=== PATIENT | male | born 1955 ===

== ENCOUNTER 2016-10-23 09:42 | Day surgery (SDC) | payer OTHER ==
[2016-10-15 11:09] VITALS: BMI 25.3
[2016-10-23] MEDS ORDERED: ceFAZolin IV 2 gm in Dextrose 50 ML IVPB ONE (11:58)
[2016-10-23] MEDS ORDERED: EPINEPHrine 1:1000 Nasal Sol(30mL) ONE (11:59)
[2016-10-23] MEDS ORDERED: Propofol 10 mg/ml Inj (20 ML) ONE (12:38)
[2016-10-23] MEDS ORDERED: Midazolam 2 MG/2 ML VIAL ONE ×2 (12:38→16:03)
[2016-10-23] MEDS ORDERED: Rocuronium 10 mg/ml (5 ml) ONE (12:38)
[2016-10-23] MEDS ORDERED: Etomidate 20 mg/10ml Inj IV ONE (13:43)
[2016-10-23] MEDS ORDERED: Lactated Ringer's 1,000 ML IV ONE ×2 (13:50→16:30)
[2016-10-23] MEDS ORDERED: ceFAZolin 1 gm FROZEN Premix 50 ML IVPB ONE (14:00)
--- NOTE | 2016-10-23 15:46 | PCM.SURG1 ---
Surgeon's Initial Post Op Note - Surgeon's Notes Surgeon: Crystal Montilla MD Spool Hauler: Silviano Espana PA-c Type of Anesthesia: General Endo Anesthesia Administered By: Dr. Cheng/Mana NARAYAN Pre-Operative Diagnosis: Left knee medial meniscal tear, chrondromalacia medial compartment Operative Findings: tourniquet not used Post-Operative Diagnosis: Left knee medial meniscal tear, chondromalcia medial compartment and PF compartment Operation Performed: 1. Left arthroscopic knee partial medial meniscectomy. 2. Chondroplasty medial compartment and patella. 3. excision of plica Specimen/Specimens Removed: none Estimated Blood Loss: EBL {In ML}: 3 Blood Products Given: N/A Drains Used: No Drains Post-Op Condition: Fair Date of Surgery/Procedure: 10/23/16 Time of Surgery/Procedure: 15:47
[2016-10-23] MEDS ORDERED: Oxycodone/Acetaminophen 5/325 mg Tab PO PRN (15:47)
[2016-10-23] MEDS ORDERED: Bupivacaine 0.5% Inj(30mL) ONE (15:50)
[2016-10-23] MEDS: HYDROmorphone 0.5 mg/0.5 ml ISec IVP PRN ×5 (15:56→16:26)
--- NOTE | 2016-10-23 16:12 | PCM.ANESB3 ---
Femoral Nerve Block - Femoral Nerve Block Date of Procedure: 10/23/16 Anesthesiologist: Ion Pre-Procedure Diagnosis: L knee osteoarthritis Post-Procedure Diagnosis: L knee arthroscope and meniscectomy Procedure Performed: Femoral Nerve Block Left - Procedure Femoral Nerve Block: The procedure was explained to the patient that it is for the post-operative pain management. Consent was obtained after a thorough discussion with the patient regarding the benefits and possible complications of local anesthetic block of the femoral nerve at the inguinal crease area. The patient was brought to the recovery room and standard monitors were applied. After applying oxygen by nasal cannula and administering IV Sedation, patient was placed in supine position with fully extended lower extremities and the ____left____ groin exposed. The femoral artery was then carefully palpated. The ultrasound transducer was then applied to this area in the transverse plane and the femoral nerve was visualized lateral to the femoral artery and underneath the fascia iliaca. After thorough identification, the inguinal crease area was prepped with Betadine solution three times and 1 % Lidocaine was injected subcutaneously for topical anesthesia. At this point, a #22 gauge Stimuplex 4-inch needle was inserted immediately lateral to the femoral artery pulse at the inguinal crease and advanced perpendicularly. The needle was inserted to the ultrasound transducer in-plane towards the femoral nerve in a [id number] direction. Needle advancement was performed carefully under direct ultrasound. After negative aspiration, ___ 30__cc of _0.5____% __Bupivacaine__was injected_. Under ultrasound guidance the local anesthetics were observed spreading below fascia iliaca and around the femoral nerve. The needle was removed intact and sterile dressing was applied. The patient had stable vital signs, was conscious and in no apparent distress. The patient tolerated the femoral nerve block well with stable vital signs.
[2016-10-23] MEDS ORDERED: Midazolam 2 MG/2 ML VIAL IVP ONE (16:14)
[2016-10-23 17:53] VITALS: BP 147/86; PULSE 88; RESP 20; TEMP 96.8; O2SAT 100
--- NOTE | 2016-11-11 10:02 | OP ---
PROCEDURE DATE: 10/23/2016 PREOPERATIVE DIAGNOSES: Left knee: 1. Complex medial meniscal tear. 2. Medial compartment chondromalacia and early degenerative joint disease. 3. Patellar chondromalacia and early degenerative changes. POSTOPERATIVE DIAGNOSES: Left knee: 1. Complex medial meniscal tear not amenable to meniscal repair. 2. Medial compartment chondromalacia and early degenerative changes. 3. Patellar chondromalacia. 4. Lateral tibial plateau chondromalacia. 5. Synovitis and symptomatic plica band medially. PROCEDURES: Left knee arthroscopic: 1. Partial medial meniscectomy. 2. Chondroplasty of medial compartment, patella, lateral tibial plateau. 3. Extensive synovectomy and resection of symptomatic plica band. SURGEON: Karey Montilla MD BUTCHER SCULLION: Ede Espana PA-C JUSTIFICATION FOR BUTCHER SCULLION: Ede Espana is a certified physician special ed assistant and her skilled surgical services as a skilled surgical aide were very valuable during this procedure as she provided skilled surgical assistance with positioning of patient, positioning of extremity, management of surgical field and arthroscopic equipment, handling of arthroscopic equipment, wound closure. Ede Espana was present for the entire case. ESTIMATED BLOOD LOSS: 3 mL. ANESTHESIA: General endotracheal anesthesia with a postoperative regional nerve block placed by anesthesia staff in PACU. DRAINS: None. IMPLANTS: None. COMPLICATIONS: None. DISPOSITION: The patient was extubated and transferred to PACU in stable condition and tolerated the procedure well. INDICATIONS FOR SURGERY: The patient is a 61-year-old male with a past medical history significant for uncontrolled diabetes, obesity, hypertension, hypercholesterolemia who presented to the office under my care for the first time on 08/01/2016 with left knee pain since injury at work on 07/08/2016. The patient was referred by the [facility] office as a workman's compensation case. 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 He states on 07/08/2016, while he was at work, he was climbing into his truck and he slipped off the back of the truck, landing on his left knee and twisting his left knee as well. He had immediate 10/10 pain localized to the left knee medial aspect and difficulty with weightbearing after. He was evaluated by Dr. Cary at the [facility] office and referred for an MRI of the left knee which was done at [facility] on 07/23/2016 and read as: 1. Complex tears of the posterior horn and body of the medial meniscus/complex medial meniscal tear. 2. Degenerative changes of the medial joint and patellofemoral compartment. 3. Effusion. 4. Sprain of the ACL. X-rays taken in the office on initial presentation showed some mild loss of the medial joint space with early degenerative changes of the medial compartment and osteophyte formation with an overall varus alignment. Examination in the office consistently was positive for medial meniscus tear with positive Domo, pain with palpation at medial joint line, pain at medial joint line with flexion past 90 degrees. There was no evidence of instability. He did have significant reproducible symptomatic medial plica band and infra-patellar bogginess and synovial pain. We started with conservative treatment after reviewing the MRI with him which included placement in a neoprene hinged knee brace for stability as the patient had multiple episodes of giving out, anti-inflammatory medication, compound anti -inflammatory pain cream, physical therapy and cortisone injections. The patient had a history of left knee arthroscopic partial medial meniscectomy almost 10 years ago, also work related. After undergoing the previous left knee arthroscopic surgery 10 years ago and before this work injury, the patient denies having any left knee pain or dysfunction. He reports that he was able to perform his job without any difficulty and was able to have an active lifestyle without pain. Overall, he underwent 3 rounds of cortisone mixture injection to the left knee with each round of injections injecting both the medial and lateral compartments as the patient has a history of surgery and 1 injection alone in one setting did not provide nearly complete pain relief as 2 injections in each compartment provided. As stated before, he underwent 3 rounds of cortisone mixture injections to the left knee on 08/01/2016, 08/20/2016 and on 2013. All 3 rounds of the cortisone mixture injections provided him with near complete pain relief immediately which lasted about 1 week. The patient was compliant with physical therapy and brace use. Finally, after 2 months of conservative treatment under my care and absolutely no overall improvement in his presentation and pain level as well as inability to return to work, the patient was indicated for arthroscopic surgery of the left knee. He consistently complained of pain localized to the medial joint line as well as a global bogginess, multiple episodes of giving way and falling, multiple episodes of locking, and pain constantly with any ambulation. He was indicated for left knee arthroscopic partial medial meniscectomy versus repair, chondroplasty versus microfracture of the areas of chondromalacia, and all related indicated arthroscopic surgical procedures including synovectomy and plica band resection. The risks, benefits, and alternatives of the procedure were discussed at length with the patient with the risks including, but not limited to, infection, neurovascular damage, need for further surgery, development of blood clots including DVT and PE, development of chronic pain and disability, need for further surgery, accelerated degenerative process, chondrolysis, failure of any repair, need for a total knee arthroplasty in the future, anesthesia reactions including . After answering all of his questions, the patient stated that he understood the risks and wished to proceed with surgery. He watched surgical animation videos and diagnosis animation videos and stated that he understood the surgery as well as the multiple diagnoses. I reviewed at length with him the postoperative rehab protocol and he stated that he understood the need for compliance with the rehab protocol in order to maximize the chance of having a successful outcome after surgery. He also understood that he has underlying degenerative process starting most notably at the medial compartment with the overall varus alignment and that was something that will continue to worsen despite our best efforts during this procedure. The goal of this surgery is to treat his acute injury, which is the medial meniscal tear, as a worker's compensation acute injury as well as any cartilage injury, but the patient understands that this surgery will not treat the degenerative process that has started in his knee. He was referred to his primary care physician for medical clearance and preadmission testing. We also discussed at length the need for DVT prophylaxis in the form of Lovenox 40 mg once daily starting postoperative day #1 as the patient has significant risk factors including his uncontrolled diabetes and obesity as well as sedentary lifestyle and being a risk for postoperative DVT development or PE development. The patient agreed to DVT prophylaxis postoperatively and arrangements were made through the worker's compensation office to provide him with the medications/injections. PROCEDURE IN DETAIL: The patient was identified in the preoperative holding area and the left knee was marked for surgery. Once again, as described above, the risks, benefits, and alternatives to procedure were discussed at length with the patient and informed consent was obtained. PROCEDURE IN DETAIL: The patient was identified in the preoperative holding area and the left knee was marked for surgery. Once again, as described above, the risks, benefits, and alternatives of the procedure discussed at length with the patient and informed consent was obtained. After a brief discussion with anesthesia staff, perioperative IV antibiotics in the form of 2 g Ancef were administered and the patient was taken to the operating room and placed on a well-padded operating room table with all bony prominences and superficial neurovascular structures well padded. A final timeout was done with the surgeon , anesthesia staff, and OR staff. All were in agreement with the patient, procedure being done, and extremity being operated on. General anesthesia was administered without difficulty or complication. Examination under anesthesia was then carried out. EXAMINATION UNDER ANESTHESIA: Left knee with full range of motion compared to the contralateral knee. No warmth, no swelling, no erythema. Skin intact. No significant instability with negative anterior apprentice/lineman neutral external rotation and internal rotation, negative posterior drawer, negative Karlos, negative reverse Karlos, negative pivot shift, negative reverse pivot shift, negative posterolateral corner drawer test, negative recurvatum, negative dial test, negative opening to medial or lateral joint lines at 0 or 30 degrees varus or valgus stress, patella with normal tracking with no evidence of instability, with significant crepitance. Reproducible throughout patellar tracking and range of motion, there was a palpable click engaging between 30 and 40 degrees of flexion throughout arc of range of motion at the medial aspect of the inferior medial aspect of the patellar representing a symptomatic plica band. CONTINUATION OF PROCEDURE: A tourniquet was placed high on the left thigh, but never inflated. The left lower extremity was prepped and draped in standard sterile fashion. Next, 50 mL of normal saline were used to insufflate the knee joint. Anterolateral portal was then created with stab incision through skin down to subcutaneous tissue down to the capsule. The blunt arthroscopic trocar and cannula were inserted into the suprapatellar pouch and the arthroscopic camera was inserted. Insufflation with arthroscopic fluid was begun. With the use of spinal needle localization, optimal positioning for anterior medial portal was selected and stab incision was made through skin down to subcutaneous tissue down to the level of capsule. An accessory cannula was then inserted and the left knee joint was copiously irrigated for better visualization and removal of debris. With the use of an arthroscopic probe, a diagnostic arthroscopy was then carried out. Attention was first turned towards the suprapatellar pouch where there was no evidence of adhesions or loose bodies. Attention was then turned towards the patellofemoral joint where globally throughout the medial and lateral facets of the patella there was grade II-III chondromalacia with fibrillation and some loose cartilage fragments. At the medial facet, there was an area of grade IV chondromalacia and unstable cartilage flaps as well. Trochlea exhibited grade II-III chondromalacia with no full-thickness defects seen. Attention was then turned towards the medial gutter where immediately visualized extending from the inferior medial aspect of the patella to the medial retinaculum was a thickened hypertrophic synovial band of tissue/plica band of tissue that was symptomatic. Attention was then turned towards the medial compartment where immediately seen was a complex medial meniscal tear in 2 zones of injury. The first a complex tearing that was definitely irreparable was at the junction of the body and posterior horn as a full-thickness complex radial tear extending to the periphery that did not appear to be repairable. At the posterior horn and root junction, there was a secondary tear that was also complex in nature extending down to the root of the posterior aspect of the medial meniscus as well that did not appear amenable to repair either. The medial femoral condyle and medial tibial plateau did exhibit significant chondromalacia and early degenerative changes with areas of full-thickness cartilage loss at the medial femoral condyle throughout its weightbearing surface with interposed areas of grade II, III and IV chondromalacia throughout the entire medial femoral condyle at its weightbearing aspect as well. The medial tibial plateau exhibited grade II-III chondromalacia with fibrillation of the cartilage. Attention was then turned towards the intercondylar notch where intact ACL and PCL were seen, as well as an osteophyte extending into the intercondylar notch. Attention was then turned towards the lateral compartment where intact lateral femoral condyle cartilage was seen as well as intact lateral meniscus on careful evaluation. The lateral tibial plateau exhibited an area of grade III chondromalacia with loose fibrillation and cartilage flap and blistering of cartilage. At that point in time, while we had access with the use of arthroscopic shaver and radiofrequency ablation, a chondroplasty of the lateral tibial plateau cartilage was carried out establishing a smooth contour and debriding the unstable chondral flaps. Attention was then turned towards back to the medial compartment and, with the use of arthroscopic shaver, arthroscopic meniscal biters and radiofrequency ablation, a partial medial meniscectomy was carried out. The intention was to leave behind as much of the medial meniscus as possible, but as we progressed with the partial medial meniscectomy it became apparent that the complex tearing extended throughout the substance of the entire posterior horn, and an extensive partial medial meniscectomy had to be carried out to provide removal of the symptomatic complex meniscal tear. The anterior horn for the most part was able to be salvaged and left behind, but approximately 60% of the medial meniscus in total with the almost entire posterior horn of the medial meniscus was removed, debriding the body and posterior horn of the medial meniscus and resecting arthroscopically back to a stable rim of anterior horn and back to the posterior root of the medial meniscus as the complex tearing extended from the radial tear at the junction of the body and posterior horn and extended within the substance of the medial meniscus posterior horn until it reached the posterior root where it involved the root as well. Once the partial medial meniscectomy was carried out to satisfaction, with the use of arthroscopic shaver and radiofrequency ablation, a chondroplasty of the medial femoral condyle and medial tibial plateau was carried out removing all unstable cartilage flaps and establishing a smooth contour to the overall joint surface. With the use of arthroscopic shaver and radiofrequency ablation, a chondroplasty of the patella was also carried out removing unstable and cartilage fibrillations. With the use of arthroscopic shaver and radiofrequency ablation, an extensive synovectomy was also carried out removing the symptomatic hypertrophic plica band of tissue medially as well as the hypertrophic fat pad and hypertrophic synovial tissue anteriorly along the lateral and medial compartments. This was done while maintaining good hemostasis. Once the synovectomy was completed to satisfaction, final images were taken and all arthroscopic fluid and debris were removed from the knee joint. The 2 arthroscopic portals were then reapproximated with 2-0 Vicryl suture followed by 3-0 Monocryl suture for skin. Sterile dressings were applied followed by a layer of compressive sterile cast padding from the toes up to the superior thigh followed by a layer of compressive Tavares wrap from the toes up to the superior thigh. The knee was then placed into a knee immobilizer. The patient was then extubated from general anesthesia and transferred to PACU in stable condition and tolerated the procedure well. DISPOSITION: The patient will be discharged home once he has recovered from anesthesia. As stated before, we had decided together with the patient that he would start Lovenox 40 mg once daily starting postoperative day #1 as DVT prophylaxis. He has been given a prescription for Percocet for pain control. He will be weightbearing as tolerated to the left lower extremity with the knee immobilizer on at all times while ambulating, he can remove the knee immobilizer to work on range of motion while he is lying down or sitting. He is instructed to keep the dressings clean, dry, and intact until he follows up in the office. He will follow up in the office at [facility] within 1 week and already has his postoperative appointment set up. He will contact me directly with any questions or concerns. Karey Montilla MD cc: [id number] TT: 10/24/2016 09:53:37 rashad BLACKMAN
== END 2016-10-23 18:28 | disposition home or self-care (01) ==
LOC: C.SDS 09:42
PROVIDERS: ATTEND Student in an Organized Health Care Education/Training Program
DX: M23.232 Derangement of other medial meniscus due to old tear or injury, left knee (principal); M94.262 Chondromalacia, left knee; M65.862 Other synovitis and tenosynovitis, left lower leg
CPT/HCPCS: 29879; 29881; 82948; 97116; 97161; G8978; G8979; G8980; J0690; J1170; J2001; J2250; J2704; J3010; J7120